=== PATIENT | female | born 1990 | race Caucasian/White ===

== ENCOUNTER → 2016-12-28 | Outpatient (CLI) | payer BC ==
[~2016-12-28] MED LIST: B-CO1TAB29 PO; CHOL1000 PO; CHOL400C10 PO; FERR325T51 PO; FOLI1TAB7 PO; MTR600X PO; ONDA4TAB46 PO; SERT25TA PO
[2016-12-28 09:44] LABS: HEMATOCRIT 30.8 % (37-47)
[2016-12-28 12:27] LABS: URINE APPEARANCE CLEAR (CLEAR); URINE BILIRUBIN NEG (NEG); URINE COLOR YELLOW; URINE EPITHELIAL CELL AUTO >30 /lpf (0-5); URINE NITRITE NEG (NEG); URINE PH 6.5 (4.5-7.5); URINE SPECIFIC GRAVITY 1.023 (1.000-1.030); UROBILINOGEN NEG (NEG)
[2016-12-28 12:28] LABS: MANUAL MICROSCOPIC REQUIRED? NO; REVIEW REQ? YES
== END | disposition home or self-care (01) ==
LOC: C.LAB1850 08:43
PROVIDERS: ATTEND Obstetrics & Gynecology
DX: Z34.83 Encounter for supervision of other normal pregnancy, third trimester (principal)

== ENCOUNTER → 2017-02-11 | Outpatient (CLI) | payer BC | END | disposition home or self-care (01) | LOC: C.LABSPEC 17:50 | PROVIDERS: ATTEND Obstetrics & Gynecology | DX: Z34.83 Encounter for supervision of other normal pregnancy, third trimester (principal) ==

== ENCOUNTER → 2017-02-13 | Outpatient (CLI) | payer BC ==
[2017-02-13 11:05] LABS: HEMATOCRIT 32.8 % (37-47); MEAN CELL VOLUME 80.6 fL (80-100); MEAN CORPUSCULAR HEMOGLOBIN 25.8 pg (25-34); MEAN PLATELET VOLUME 9.5 fL (7.4-10.4); PLATELET COUNT 201 K/uL (130-400); RED BLOOD COUNT 4.07 M/uL (4.2-5.4); WHITE BLOOD COUNT 10.11 K/uL (4.8-10.8)
[2017-02-13 11:40] LABS: URINE TOTAL PROTEIN 23.3 mg/dl (0-11.9)
[2017-02-13 11:40] LABS: URIC ACID 4.2 mg/dl (2.6-7.2)
[2017-02-13 11:43] LABS: CREATININE 0.54 mg/dl (0.6-1.2); URINE TOTAL PROTEIN CALC 442.7 mg/24 hr (0-149.1)
[2017-02-13 12:15] LABS: BASO % 0.1 %; BASO ABS # 0.01 K/uL (0-0.2); COMPLETE YES; EOS % 0.2 %; IG% 0.3 %; LYMPH % 14.1 %; LYMPH ABS # 1.43 K/uL (1.2-3.4); MONO % 7.5 %; NEUT % 77.8 %
== END | disposition home or self-care (01) ==
LOC: C.LAB1850 09:32
PROVIDERS: ATTEND Obstetrics & Gynecology
DX: O12.13 Gestational proteinuria, third trimester (principal)

== ENCOUNTER 2017-02-24 12:41 | Outpatient (CLI) | payer BC ==
[~2017-02-24] VITALS: Ht 157.5 cm; Wt 81.4 kg
[~2017-02-24 12:41] MED LIST changes: -CHOL1000 PO; -FOLI1TAB7 PO
[2017-02-24] MEDS ORDERED: FOLI1TAB7 PO (14:41)
[2017-02-24] MEDS ORDERED: CHOL1000 PO (14:45)
[2017-02-24 14:52] VITALS: Ht 157.5 cm; Wt 81.4 kg
--- NOTE | 2017-02-26 13:24 | EDITING REQUIRED CODING QUERY ---
DIAGNOSIS NEEDED To promote full compliance with coding requirements relating to patient care, physician participation is requested in all cases of fourchette sewer uncertainty. Please assist us with the question(s) below: Coding Question: The patient received care in labor and delivery on 02/24/17 as noted within the record. Please document the diagnosis that is being addressed by the medication/treatment. Provider Response: DIAGNOSIS: False labor at term Thank you for your assistance, Cara Stratton - [employer] Technician
== END 2017-02-24 16:25 | disposition home or self-care (01) ==
LOC: C.OPB 12:41 → C.LD 12:43 → C.OPB 16:25
PROVIDERS: ATTEND Obstetrics & Gynecology
DX: Z34.83 Encounter for supervision of other normal pregnancy, third trimester (principal); Z3A.38 38 weeks gestation of pregnancy

== ENCOUNTER 2017-02-25 20:26 | Inpatient (IN) | payer BC ==
[~2017-02-25] VITALS: Ht 157.5 cm; Wt 81.8 kg
[~2017-02-25 20:26] MED LIST changes: +CHOL1000 PO; -CHOL400C10 PO; +FOLI1TAB7 PO; -MTR600X PO; -SERT25TA PO
[2017-02-25] MEDS ORDERED: LACTATED RINGER'S 1000ML 1,000 ML IV PRN (20:50)
[2017-02-25] MEDS ORDERED: LACTATED RINGER'S 1000ML 1,000 ML IV SCH (20:50)
[2017-02-25 21:26] LABS: HEMATOCRIT 32.6 % (37-47); MEAN CELL VOLUME 79.7 fL (80-100); MEAN CORPUSCULAR HEMOGLOBIN 26.2 pg (25-34); MEAN CORPUSCULAR HGB CONC 32.8 g/dl (32-36); MEAN PLATELET VOLUME 9.1 fL (7.4-10.4); PLATELET COUNT 299 K/uL (130-400); RED BLOOD COUNT 4.09 M/uL (4.2-5.4); WHITE BLOOD COUNT 12.62 K/uL (4.8-10.8)
[2017-02-25 22:11] VITALS: Ht 157.5 cm; Wt 81.8 kg
[2017-02-25] MEDS ORDERED: EpHEDrine SULFATE INJ 50 MG/ML AMP ONE (22:46)
[2017-02-25] MEDS ORDERED: BUPIVACAINE 0.25% 30 ML VIAL ONE (22:46)
[2017-02-25] MEDS ORDERED: FENTANYL 2MCG/ML ROPIV 1.25MG/ML 100ML BAG EPI ONE (22:47)
[2017-02-25] MEDS ORDERED: FENTANYL CITRATE INJ 50 MCG/1 ML 2 ML VIAL ONE (22:47)
[2017-02-25] MEDS ORDERED: LACTATED RINGER'S 1000ML 500 ML IV PRN (23:43)
[2017-02-25] MEDS ORDERED: NALOXONE HCL INJ 1 MG in SODIUM CHLORIDE 0.9% 1000ML 1,000 ML IV PRN (23:43)
[2017-02-25] MEDS ORDERED: DiphenhydrAMINE HCL 50 MG/ML VIAL IV PRN (23:45)
[2017-02-25] MEDS ORDERED: NALBUPHINE HCL INJ 10 MG/ML AMP IV PRN (23:45)
[2017-02-25] MEDS ORDERED: FENTANYL 2MCG/ML ROPIV 1.25MG/ML 100ML BAG EPI PRN (23:45)
[2017-02-25] MEDS ORDERED: NALOXONE HCL INJ 0.4 MG/1 ML VIAL/CARP IV PRN (23:45)
[2017-02-25] MEDS ORDERED: EpHEDrine SULFATE INJ 50 MG/ML AMP IV PRN (23:45)
[2017-02-25] MEDS ORDERED: PROMETHAZINE HCL INJ 12.5 MG in SODIUM CHLORIDE 0.9% 50ML 50 ML IV PRN (23:45)
[2017-02-25] MEDS ORDERED: ONDANSETRON INJ 2 MG/ML 2 ML VIAL IV PRN (23:45)
[2017-02-26] MEDS ORDERED: OXYTOCIN 30 UNITS/500ML NSS IV ONE (06:00)
[2017-02-26] MEDS ORDERED: LANOLIN OINT EXT PRN ×2 (06:30)
[2017-02-26] MEDS ORDERED: OXYTOCIN 30 UNITS/500ML NSS IV PRN (06:30)
[2017-02-26] MEDS ORDERED: ACETAMINOPHEN/CODEINE 300/30MG TAB PO PRN ×2 (06:30)
[2017-02-26] MEDS ORDERED: ACETAMINOPHEN 325 MG TAB PO PRN (06:30)
[2017-02-26] MEDS ORDERED: BENZOCAINE 20% AER SPR 82.5 GM CAN EXT PRN (06:30)
[2017-02-26] MEDS ORDERED: SUPERCREAM 0.870 % 15GM JAR EXT PRN (06:30)
--- NOTE | 2017-02-26 07:53 | DELIVERY SUMMARY ---
DATE OF OPERATION: 02/26/2017 The patient is a 26-year-old 2 Para 1-0-0-1 white female who had presented in active labor. She received epidural analgesia at 6 cm dilated. Membranes were ruptured from thin meconium-stained fluid. She progressed to full dilation and pushed effectively over intact perineum for delivery of a viable female . Posterior hand was presenting after the vertex and this was delivered before the rest of the . There was spontaneous crying and vigorous movement of the baby after delivery. Mouth and nasopharynx were suctioned on the perineum prior to delivering the rest of the . The infant was placed on the mother's abdomen for further attention and drying. The placenta was expressed intact with a 3-vessel cord. Second degree perineal laceration was repaired with 3-0 chromic in the usual fashion. bleeding was controlled with dilute Pitocin. Estimated blood loss was 500 cc. Mother and were doing well after delivery. I attest to the content of the Intraoperative Record and any orders documented therein. Any exceptio ns are noted below.
[2017-02-26] MEDS: PRENATAL VITAMIN TAB PO SCH (08:00)
[2017-02-26] MEDS: DOCUSATE SODIUM 100 MG CAP PO SCH ×2 (08:00→20:00)
--- NOTE | 2017-02-26 09:13 | Anesthesia Procedure Note ---
Anesthesia Epidural Removal Nt Date & Time Feb 26, 2017 at 09:13 Vital Signs Pain Intensity: 0.0 Notes Mental Status: alert / awake / arousable, participated in evaluation Nausea / Vomiting: adequately controlled Pain: adequately controlled Airway Patency, RR, SpO2: stable & adequate BP & HR: stable & adequate Hydration State: stable & adequate Neuraxial Anesthesia: was administered Anesthetic Complications: no major complications apparent, pt satisfied with anesthetic care Epidural: removed without complications, with tip intact
[2017-02-26] MEDS: IBUPROFEN 600 MG TAB PO PRN ×2 (10:36→15:04)
[2017-02-26 14:45] VITALS: BP 109/73; PULSE 100; TEMP 37.1; O2SAT 97
[2017-02-26 19:58] VITALS: BP 108/69; PULSE 102; TEMP 36.9
[2017-02-26] MEDS: BISACODYL 5 MG TABEC PO SCH (20:00)
[2017-02-27] VITALS: BP 108/67; PULSE 105; TEMP 36.9
[2017-02-27] MEDS: IBUPROFEN 600 MG TAB PO PRN ×3 (01:24→16:42)
[2017-02-27 04:00] VITALS: BP 100/65; PULSE 97; TEMP 36.5
[2017-02-27 07:21] LABS: HEMATOCRIT 23.3 % (37-47)
--- NOTE | 2017-02-27 07:32 | Progress Note ---
Subjective Feb 27, 2017. Subjective conversation w/ patient, physical exam Ambulation: ambulating normally Voiding: no voiding problems Passing Gas: Yes Diet Tolerance: Regular Diet Lochia: Moderate Feeding Type: Breast Feeding Review of Systems Constitutional: No chills, No fever Respiratory: No cough Cardiac: No chest pain Abdomen: No nausea, No vomiting Objective Vital Signs Date Time Temp Pulse Resp B/P Pulse Ox O2 Delivery O2 Flow Rate FiO2 02/27/17 04:00 36.5 97 16 100/65 Room Air 02/27/17 00:00 36.9 105 18 108/67 Room Air 02/27/17 00:00 Room Air 02/26/17 19:58 36.9 102 18 108/69 Room Air 02/26/17 14:45 97 Room Air 02/26/17 14:45 37.1 100 18 109/73 97 Room Air Physical Exam General Appearance: WELL-APPEARING, NO APPARENT DISTRESS Respiratory/Chest: no respiratory distress, no accessory muscle use Cardiovascular: no edema Abdomen: non tender, soft Fundus: Firm Extremities: no calf tenderness Laboratory Results Last 24 Hours Test 02/27/17 06:03 Hemoglobin 7.5 g/dL Hematocrit 23.3 % Assessment and Plan Post- Day#: 1 Continue Routine Care: yesterday AM, recovering well. Routine pp care.
[2017-02-27 07:50] VITALS: BP 104/72; PULSE 92; TEMP 36.5
[2017-02-27] MEDS: DOCUSATE SODIUM 100 MG CAP PO SCH ×2 (07:58→19:47)
[2017-02-27] MEDS: PRENATAL VITAMIN TAB PO SCH (07:59)
[2017-02-27 17:42] VITALS: BP 115/78; PULSE 114; TEMP 36.7
[2017-02-27 19:40] VITALS: BP 112/72; PULSE 103; TEMP 36.4; O2SAT 97
[2017-02-27] MEDS: BISACODYL 5 MG TABEC PO SCH (19:47)
[2017-02-27 23:00] VITALS: BP 109/68; PULSE 110; TEMP 36.8; O2SAT 98
--- NOTE | 2017-02-28 06:47 | Progress Note ---
Subjective Feb 28, 2017. Subjective conversation w/ patient, physical exam Ambulation: ambulating normally Voiding: no voiding problems Passing Gas: Yes Diet Tolerance: Regular Diet Lochia: Small Feeding Type: Breast Feeding (pumping due to nipple cracked and painful) Review of Systems Constitutional: No chills, No fever, No sweats Respiratory: No cough, No shortness of breath Cardiac: No chest pain, No claudication Objective Vital Signs Date Time Temp Pulse Resp B/P Pulse Ox O2 Delivery O2 Flow Rate FiO2 02/27/17 23:00 Room Air 02/27/17 23:00 36.8 110 16 109/68 98 Room Air 02/27/17 19:40 Room Air 02/27/17 19:40 36.4 103 16 112/72 97 Room Air 02/27/17 17:42 36.7 114 20 115/78 02/27/17 16:30 Room Air 02/27/17 07:50 36.5 92 16 104/72 Room Air 02/27/17 07:50 Room Air Physical Exam General Appearance: WELL-APPEARING, NO APPARENT DISTRESS Respiratory/Chest: lungs clear, no accessory muscle use Cardiovascular: regular rate, rhythm, no murmur Fundus: Firm, Non-Tender, Relation to Umbilicus (1 cm below) Extremities: non-tender, no calf tenderness Assessment and Plan Post- Day#: 2 Continue Routine Care: s/p Day 2 - vitals reviewed and wnl - Hgb reviewed and 7.5 yesterday (will send home with iron) - blood: O- (baby rhesus +;therefore mom received rhogam), GBS-, Rubella immune - encourage breast feeding, encourage ambulation, and monitor lochia - patient counselled on discharge instructions - PATIENT TO BE DISCHARGED TODAY Resident Physician Supervision Note: I interviewed and examined the patient. Discussed with Dr. Martino and agree with findings and plan as documented in the note. Any exceptions or clarifications are listed here: [None] Documented By: Bienvenido Lozano
--- NOTE | 2017-02-28 06:48 | Discharge Instructions ---
Discharge Instructions Date of Service Feb 28, 2017. Admission Reason for Admission: LABOR Discharge Discharge Diagnosis / Problem: Spontaneous Vaginal Delivery Discharge Goals Goal(s): Routine recovery after delivery Medications Continue Dispensed Medications: supercream, dermaplast, tucks, lansinoh Activity Recommendations Activity Limitations: per Instructions/Follow-up section . Instructions / Follow-Up Instructions / Follow-Up ACTIVITY RECOMMENDATIONS: * Gradual return to full activity over the next 2-3 weeks. * No lifting - nothing heavier than baby over the next 2-3 weeks. * Do not engage in vigorous exercise, sexual activity or sports until cleared by your physician. * Do not drive or operate any motorized equipment until cleared by your physician. * You may shower/bathe daily. MEDICATIONS: For discomfort or pain, you may use Acetaminophen (Tylenol), Ibuprofen (Advil), or Naproxen (Aleve) following the package directions. For constipation you may use Colace following the package directions. BREAST CARE: If you are not breast feeding: * Wear a supportive bra 24 hours a day for one to two weeks. * Avoid stimulating your breasts and nipples as much as possible during the first few weeks after delivery. * When taking a shower, have the warm water hit your back, not breasts. * When your breasts feel full, apply ice packs. Usually three to four times a day helps ease the discomfort. * Take a mild pain medication (Tylenol / Motrin) when you are uncomfortable. If breast feeding: * Use breast milk to lubricate nipples. Lansinoh cream may be used for sore nipples. You do not need to remove cream prior to breast feeding. If using a different brand of cream, check the label for directions regarding removal of cream prior to nursing. * Wear a supportive bra. * If having problems with breasts or breast feeding, call a loan consultant or your health care provider. EPISIOTOMY CARE: After delivery, if you have an episiotomy (stitches), the following steps will ease discomfort and aid healing. * For the first 24 hours after delivery, place ice packs next to your episiotomy to help reduce swelling. * After the first 24 hour-period, sitz baths, either portable or in the tub, are suggested. A shower with a shower arm sprayed over the episiotomy may be comforting. * Marielos care should be done after each voiding and bowel movement. Squirt warm water from a plastic bottle over the perineum (region of the body between the anus and urinary opening) and pat dry. * Use Dermoplast to ease discomfort. Shake container. [place] directly over the episiotomy. Place a Tucks on a clean sanitary pad next to your episiotomy. SPECIAL CARE INSTRUCTIONS: When you are discharged from the hospital, it is important for you to follow the instructions listed below: * During the first week at home, you should be able to care for yourself and your baby. In addition, the usual light household activities are encouraged. * Limit your activities to the way you feel. Do not try to clean the house or move furniture. Be sensible. * If you actively engage in sports and have done so up until the time of your delivery, you may resume these activities as soon as you feel able. This may take up to one month or even longer. Use good judgment. * Continue to take your vitamins for at least six weeks after the of your baby. * Your diet need not be limited unless you were on a special diet before your delivery. Breast-feeding mothers need around 2500 calories per day and at least 64-80 ounces of fluid per day (8 to 10 glasses). * You should eat foods from the four major food groups. Crash diets or fad diets are to be avoided. Eating lean meats, fresh fruits and vegetables, low-fat dairy products, high fiber foods and a regular exercise program, will help you get back to your pre- weight without putting your health at risk. * Constipation is sometimes a problem after delivery. Take a mild laxative as needed. If breast feeding, Milk of Magnesia is acceptable to use. You may use a suppository or Fleets enema if no episiotomy. * A daily shower or tub bath is suggested. Be sure to thoroughly and gently dry the perineum. * A bloody vaginal discharge will usually continue until around four weeks post . A small amount of bleeding may continue for as long as six weeks. Vaginal discharge changes from the bright red bleeding after delivery to pink then brownish and finally yellowish-pink before becoming white and disappearing. * Bleeding may increase with activity. Your first period may come in 4-8 weeks. If you are breast feeding, your period may be delayed even longer. * [place] (sex) can begin whenever both you and your partner feel comfortable and do not have any form of genital infection. It is recommended that you wait at least six weeks for internal and external healing to occur. If you have questions, please talk to your health care practitioner. A condom should be used to prevent infection and . * Foreplay, gentle intercourse and lubrication is very important the first several times to prevent pain. A water-based lubricant such as K-Y jelly or Astroglide may be used. * If you have RH negative blood and your baby is RH positive, you will receive RHOGAM by injection prior to discharge. The nurse will give you a card to keep with you that has the date and place that you received RHOGAM after delivery. * During your care, you had a Rubella screen done to check for the presence of rubella antibodies in your blood. If your test was negative, you will receive a Rubella vaccine prior to discharge. This vaccine may cause a fever, soreness at the injection site and flu-like symptoms. If these symptoms persist, notify your health care practitioner. is not advised for one month after a Rubella vaccine. * Verbalizes understanding of car seat law as reviewed with patient nursing. * Car Seat hand-out given and reviewed with patient by nursing. * Shaken baby information reviewed with patient by nursing. Call you doctor if: * Heavy bleeding (saturating several pads an hour) or passing clots the size of your fist. * A fever >101 degrees F (38.3 degrees C) on two occasions four hours apart and /or chills. * Unusual pain in the pelvic or vaginal areas. * "Baby Blues" lasting longer than two weeks. If you have any questions or concerns, call your health care practitioner at . FOLLOW UP VISIT: * Please call the office at to schedule a 6 week examination. It is important you keep this appointment. It is important for you to make arrangements for either yearly or twice yearly check-ups thereafter. Current Hospital Diet Patient's current hospital diet: Regular OB Diet Discharge Diet Recommended Diet: Regular Diet Pending Studies Studies pending at discharge: no Medical Emergencies . Who to Call and When: Medical Emergencies: If at any time you feel your situation is an emergency, please call 911 immediately. . Non-Emergent Contact Non-Emergency issues call your: Primary Care Provider, Shorts Sifter . . "Provider Documentation" section prepared by Frankie Martino. VTE Core Measure Inpt VTE Proph given/why not?: Treatment not indicated
[2017-02-28 08:00] VITALS: BP 108/71; PULSE 101; TEMP 36.9
[2017-02-28] MEDS: DOCUSATE SODIUM 100 MG CAP PO SCH (08:20)
[2017-02-28] MEDS: PRENATAL VITAMIN TAB PO SCH (08:20)
[2017-02-28] MEDS: IBUPROFEN 600 MG TAB PO PRN (08:21)
== END 2017-02-28 12:10 | disposition home or self-care (01) | DRG 775 ==
LOC: C.LD 20:26 → C.OBG 02-26 14:34
PROVIDERS: ADMIT Obstetrics & Gynecology; ATTEND Obstetrics & Gynecology
PROC: 0KQM0ZZ Repair Perineum Muscle, Open Approach (ICD-10-PCS; principal; 2017-02-26)
PROC: 10E0XZZ Delivery of Products of Conception, External Approach (ICD-10-PCS; principal; 2017-02-26)
DX: O12.14 Gestational proteinuria, complicating childbirth (principal); O70.1 Second degree perineal laceration during delivery; Z3A.38 38 weeks gestation of pregnancy; Z37.0 Single live birth

== ENCOUNTER → 2017-04-15 | Outpatient (CLI) | payer BC | END | disposition home or self-care (01) | LOC: C.PAPS 08:45 | PROVIDERS: ATTEND Obstetrics & Gynecology | DX: Z12.4 Encounter for screening for malignant neoplasm of cervix (principal) ==